=== PATIENT | male | born 1975 | race Caucasian/White ===

== ENCOUNTER 2017-03-01 17:20 | Emergency (ER) | payer BC, OTHER ==
--- NOTE | 2017-03-01 21:49 | CT ---
CT ABDOMEN AND PELVIS WITHOUT CONTRAST 03/01/[address] of the abdomen and pelvis was performed for evaluation of abdominal pain. No prior scans w ere available for comparison. The lung bases are clear. The liver, spleen, pancreas, adrenal glands, and abdominal aorta all were unremarkable in appearance. The kidneys showed no sign of obstruction. There is a 2.2 cm rounded hyp odensity in the mid to lower portion of the right kidney that is most likely a simple cyst. Ultrasou nd would be needed to confirm it. Otherwise, there is no mass seen in either kidney. The abdominal aorta showed no sign of aneurysm. No retroperitoneal adenopathy was seen. The bowel is nondistended and shows no evidence of obstruction. There is no inflammatory change arou nd bowel. CT of the pelvis showed no pelvic masses or fluid collections. Some of the blood vessels in the deep pelvis near the peroneal region seem generous in number. IMPRESSION: 1. Probable right renal cyst. Ultrasound would be confirmatory. 2. No findings to explain the patient's left sided flank pain. POS: HOME
== END 2017-03-01 18:46 | disposition home or self-care (01) ==
LOC: BURERS 17:20
DX: G57.02 Lesion of sciatic nerve, left lower limb (principal)
CPT/HCPCS: 74176

== ENCOUNTER 2019-10-28 13:02 | Emergency (ER) | payer OTHER, SELFPAY | END 2019-10-28 13:35 | disposition home or self-care (01) | LOC: BURERS 13:02 | DX: J30.9 Allergic rhinitis, unspecified (principal) | CPT/HCPCS: 99281 ==